=== PATIENT | male | born 1995 | race Hispanic/Latino ===

== ENCOUNTER 2020-04-24 14:06 | Emergency (ER) | payer OTHER ==
[2020-04-24] MEDS ORDERED: Acetaminophen 500 MG TAB ONE (14:51)
== END 2020-04-24 15:08 | disposition left against medical advice (07) ==
LOC: BURERS 14:06
DX: R50.9 Fever, unspecified (principal); R19.7 Diarrhea, unspecified; R51.9 Headache, unspecified; R00.0 Tachycardia, unspecified; Z20.828 Contact with and (suspected) exposure to other viral communicable diseases
CPT/HCPCS: 99283